=== PATIENT | male | born 2000 | race Caucasian/White ===

== ENCOUNTER 2023-09-11 19:52 | Emergency (ER) | payer OTHER ==
[~2023-09-11] VITALS: Ht 165.1 cm; Wt 81.8 kg
[2023-09-11 19:55] VITALS: TEMP 98.6
[2023-09-11] MEDS ORDERED: NAPROSYN500 MG PO (20:56)
[2023-09-11 21:07] VITALS: BP 110/92; PULSE 77
== END 2023-09-11 21:21 | disposition home or self-care (01) ==
LOC: COL.ER 19:52
DX: S46.912A Strain of unspecified muscle, fascia and tendon at shoulder and upper arm level, left arm, initial encounter (principal); X50.0XXA Overexertion from strenuous movement or load, initial encounter; Y92.59 Other trade areas as the place of occurrence of the external cause; Y99.0 Civilian activity done for income or pay
CPT/HCPCS: J1885